=== PATIENT | female | born 1990 | race African-American/Black ===

== ENCOUNTER 2018-09-20 02:44 | Emergency (ER) | payer SELFPAY ==
[~2018-09-20] VITALS: Ht 180.3 cm; Wt 109.0 kg
[2018-09-20] MEDS ORDERED: SODIUM CHLORIDE 0.9% 1,000 ML IV ONE (03:06)
[2018-09-20 03:58] LABS: BASOPHILS % 0.9 % (0.0-2.0); EOSINOPHILS % 1.6 % (0.0-5.0); HEMATOCRIT. 35.7 % (36.0-48.0); HEMOGLOBIN. 11.9 g/dL (12.0-16.0); MEAN CORPUSCULAR HEMOGLOBIN 30.7 pg (28.0-32.0); MEAN CORPUSCULAR VOLUME 91.7 fL (81.0-99.0); MEAN PLATELET VOLUME 7.9 fl (7.4-10.4); MONOCYTES % 8.9 % (2.0-8.0); NEUTROPHILS % 66.6 % (40.0-76.0); PLATELET 296 x1000/uL (130-400); RED BLOOD CELL COUNT 3.89 mill/uL (4.2-5.4); RED CELL DISTRIBUTION WIDTH 12.7 % (11.6-14.6)
[2018-09-20 04:00] LABS: CLARITY URINE CLOUDY (CLEAR); COLOR URINE YELLOW (YELLOW); KETONES URINE NEGATIVE (NEGATIVE); LEUKOCYTE ESTERASE URINE 1+ (NEGATIVE); NITRITE URINE NEGATIVE (NEGATIVE); OCCULT BLOOD URINE NEGATIVE (NEGATIVE); PH URINE 5.5 (4.5-8.0); PROTEIN URINE NEGATIVE (NEGATIVE); SPECIFIC GRAVITY URINE 1.011 (1.005-1.030); UROBILINOGEN URINE 0.2 E.U./dL (0.2-1.0)
[2018-09-20 04:02] LABS: CHLORIDE 105 mEq/L (98-107)
[2018-09-20 04:12] LABS: ETHANOL BLOOD 11 mg/dL
[2018-09-20 04:24] LABS: *AMPHETAMINES SCREEN URINE NEGATIVE (NEGATIVE); *BARBITURATES SCREEN URINE NEGATIVE (NEGATIVE); *BENZODIAZEPINES SCREEN URINE NEGATIVE (NEGATIVE); *COCAINE SCREEN URINE NEGATIVE (NEGATIVE); METHADONE URINE SCREEN NEGATIVE (NEGATIVE); OPIATES URINE SCREEN NEGATIVE (NEGATIVE); PHENCYCLIDINE URINE SCREEN NEGATIVE (NEGATIVE)
[2018-09-20 04:26] LABS: CANNABINOID URINE SCREEN PRESUMTIVE POSITIVE (NEGATIVE)
[2018-09-20] MEDS ORDERED: ACETAMINOPHEN 500MG TABLET PO ONE (05:30)
[2018-09-20 06:53] VITALS: BP 123/75
== END 2018-09-20 07:00 | disposition home or self-care (01) ==
LOC: ER 02:44
DX: S16.1XXA Strain of muscle, fascia and tendon at neck level, initial encounter (principal); V47.5XXA Car driver injured in collision with fixed or stationary object in traffic accident, initial encounter; Y93.84 Activity, sleeping; Y92.488 Other paved roadways as the place of occurrence of the external cause
CPT/HCPCS: 36415; 70450; 71045; 72125; 80053; 80305; 81003; 81025; 83880; 84484; 85025; 85379; 93005; 99285; G0482; J7030